=== PATIENT | male | born 2000 | race Asian ===

== ENCOUNTER 2021-05-12 16:53 | Emergency (ER) | payer OTHER, SELFPAY ==
[2021-05-12 17:47] VITALS: BP 120/67; PULSE 52; RESP 20; TEMP 36.5; O2SAT 100; BMI 17.0
[2021-05-12] MEDS: Lidocaine HCl 1 % MPF 5 ML VIAL SUBCUT (19:47)
[2021-05-12] MEDS: cephALEXin 500 MG CAPSULE PO (21:05)
--- NOTE | 2021-05-12 22:07 | ED.WOUNDLAC ---
HPI - Wound/Laceration General Chief Complaint: Wound/Laceration Stated Complaint: face lac Time Seen by Provider: 05/12/21 18:27 Source: patient Mode of arrival: ambulatory History of Present Illness HPI narrative: 20-year-old male presenting to the ED complaining of laceration to right lip/face s/p using tire trimmer hand at work [employer]. Reports tetanus is up-to-date. Denies injury to the area. Onset (ago): hour(s) Related Data Previous Rx's Medication Instructions Recorded bacitracin 1 appl TOPICAL BID #28 g 05/12/21 cephalexin 500 mg PO QID 7 Days #28 cap 05/12/21 Allergies Allergy/AdvReac Type Severity Reaction Status Date / Time amoxicillin Allergy Unknown Verified 05/12/21 17:51 Review of Systems Review of Systems: Constitutional: No Fever, No Chills ENT/Mouth: No Ear Pain, No Nasal Congestion, No Sinus Pain, No Hoarseness, No sore throat, No Swallowing Difficulty Eyes: No Eye Pain, No Foreign Body, No Discharge, No Vision Changes Skin:+laceration Neuro:No Numbness, No Paresthesias, No Loss of Consciousness, No Headache Yes all other systems are reviewed and are negative [facility] Past Medical History Attestation statement: The following information was validated with the patient. Medical History (Updated 05/12/21 @ 20:57 by VIELKA Simeon) No known health problems Social History Social History Advance Directives: No Advance Directives Information Provided: No Physical Exam Vital Signs: Vital Signs: Last Vital Signs Temp 97.7 F 05/12/21 17:47 Pulse 52 05/12/21 17:47 Resp 20 05/12/21 17:47 BP 120/67 05/12/21 17:47 Pulse Ox 100 05/12/21 17:47 Body Mass Index 17.0 Const: General: cooperative, healthy appearing and no acute distress Orientation/consciousness: patient oriented x3 Limitations: no limitations HENMT: Head: Yes normal to inspection Ears: hearing grossly normal bilaterally General nose exam: Normal external nose present Throat: Yes posterior oropharynx normal and Yes uvula midline Eyes: General: appearance normal, both eyes and all related structures Conjunctivae: conjunctivae normal Corneas: corneas normal EOM: EOMs intact bilaterally Neck: Neck: Yes normal visual inspection and Yes no meningeal signs Resp: Effort & Inspection: normal respiratory effort Cardio: Rate: regular rate Skin: Other: + 6 cm right-sided facial laceration noted, extending from corner of mouth diagonally outward. Not through and through Involving vermilion border at most medial portion. Deep at most lateral portion. No intraoral lacerations noted Rashes: no rashes Neuro: General: patient oriented x3 and no meningeal signs Gait exam (Neuro): Normal gait present Extrem: General: Yes normal to inspection Procedures Laceration Laceration 1: Site: face and lip Size (cm): 6 Description: linear and involves woody border Local Anesthetic: lidocaine 1% Amount of anesthesia used (mL): 4.5 Pre-repair: wound explored, irrigated extensively, deep structures intact and extensive debridement Skin layer closed with: nylon and other Size (cm): 6-0 Number of sutures: 4 Technique: simple, interrupted Subcutaneous layer closed with: chromic gut Size: 6-0 Number of sutures: 6 Technique: simple, interrupted MDM - Wound/Laceration MDM Narrative Medical decision making narrative: 20-year-old male presenting to the ED complaining of laceration to right lip/face s/p using tire trimmer hand at work [employer]. On exam VSS, physical exam as above, laceration extending from corner of mouth diagonally across face 6 cm in total length. 3 internal absorbable sutures placed in deeper lateral portion with 4 nonabsorbable sutures over for facial laceration 3 absorbable sutures placed in lip portion closing woody border Discharge Plan Discharge Clinical Impression: Laceration of lip, Face lacerations Patient Disposition: Home, Self-Care Instructions: Facial Laceration (ED) Additional Instructions: you need to return to any emergency department or urgent care to have your stitches taken out in 5 days apply bacitracin or Neosporin Keflex is an antibiotic, take as prescribed If area begins look infected, is red, there is drainage, or you fever please return to the ED Prescriptions: New cephalexin 500 mg capsule 500 mg PO QID 7 Days Qty: 28 RF: 0 bacitracin 500 unit/gram ointment 1 appl topical BID Qty: 28 RF: 0 Referrals: Iman Burrows MD [Emergency Provider] - 5 days ( for suture removal) Interventions: ED Discharge Assessment Last Done: 05/12/21 21:12 Discharge Date/Time: 05/12/21 21:14
== END 2021-05-12 21:14 | disposition home or self-care (01) ==
PROVIDERS: Emergency Provider Emergency Medicine
DX: S01.511A Laceration without foreign body of lip, initial encounter (principal); S01.81XA Laceration without foreign body of other part of head, initial encounter; W29.8XXA Contact with other powered hand tools and household machinery, initial encounter; Y93.9 Activity, unspecified; Y92.89 Other specified places as the place of occurrence of the external cause; Y99.0 Civilian activity done for income or pay
CPT/HCPCS: 12053; 99284